=== PATIENT | male | born 1960 | race Caucasian/White ===

== ENCOUNTER 2018-03-20 16:35 | Emergency (ER) | payer BC, SELFPAY ==
[2018-03-20 16:40] VITALS: BP 151/94; PULSE 77; RESP 20; TEMP 37.1; O2SAT 100
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
[2018-03-20] MEDS: Acetaminophen 500 MG TAB 1000 MG PO (17:08)
[2018-03-20] MEDS: Lidocaine 5% Patch 1 PATCH TP (17:09)
[2018-03-20 17:17] LABS: Bilirubin Negative (Negative); Blood Negative (Negative); Clarity Clear; Glucose Negative (Negative); Ketones 15 mg/dL (Negative); Leukocyte Esterase Negative (Negative); Nitrite Negative (Negative); Specific Gravity >= 1.030 (1.005-1.025); Urobilinogen 0.2 EU/dL (Up TO 0.2)
[2018-03-20 17:37] LABS: Bacteria Negative HPF (Negative); Casts 10-20 Hyaline LPF (Negative); Crystals Few Calcium Oxalate HPF (Negative); Epithelial Cells Few HPF (Negative); Mucus Moderate (Negative); Other Cells Negative (Negative); RBC Negative (0-2)
[2018-03-20 17:38] LABS: C & S Indicated? Yes
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
[2018-03-20 20:18] VITALS: BP 151/94; PULSE 77; RESP 20; TEMP 37.1; O2SAT 100
[2018-03-20] MEDS: Ketorolac 30 MG/ML VIAL IM (20:23)
== END 2018-03-20 20:25 | disposition home or self-care (01) ==
PROVIDERS: Emergency Provider Student in an Organized Health Care Education/Training Program
DX: S43.52XA Sprain of left acromioclavicular joint, initial encounter (principal); S06.0X0A Concussion without loss of consciousness, initial encounter; S12.691A Other nondisplaced fracture of seventh cervical vertebra, initial encounter for closed fracture; V18.0XXA Pedal cycle driver injured in noncollision transport accident in nontraffic accident, initial encounter; Y93.55 Activity, bike riding
CPT/HCPCS: 90471; 96372; 99284; 70450; 70490; 73030; 81003; 81015; 87086; J1885; L3650